=== PATIENT | female | born 1950 | race Caucasian/White ===

== ENCOUNTER → 2024-05-19 07:26 | Outpatient (REF) | payer MEDICARE, OTHER, SELFPAY | LOC: WDC 07:26 | PROVIDERS: ATTENDING PHYSICIAN Nurse Practitioner Adult Health; FAMILY PHYSICIAN Nurse Practitioner | DX: Z12.31 Encounter for screening mammogram for malignant neoplasm of breast (principal); M85.89 Other specified disorders of bone density and structure, multiple sites | CPT/HCPCS: 77063; 77067; 77080 ==

== ENCOUNTER → 2024-06-23 18:59 | Outpatient (REF) | payer MEDICARE, OTHER, SELFPAY | LOC: PAVMRI 18:59 | PROVIDERS: ATTENDING PHYSICIAN Student in an Organized Health Care Education/Training Program; FAMILY PHYSICIAN Nurse Practitioner | DX: M25.511 Pain in right shoulder (principal) | CPT/HCPCS: 73221 ==

== ENCOUNTER → 2024-07-28 13:10 | Outpatient (REF) | payer MEDICARE, OTHER, SELFPAY | LOC: HWRAD 13:10 | PROVIDERS: ATTENDING PHYSICIAN Internal Medicine Critical Care Medicine; FAMILY PHYSICIAN Nurse Practitioner | DX: R93.89 Abnormal findings on diagnostic imaging of other specified body structures (principal) | CPT/HCPCS: 71250 ==

== ENCOUNTER → 2024-09-15 07:00 | Outpatient (REF) | payer MEDICARE, OTHER, SELFPAY ==
[2024-09-15 07:38] LABS: % Basophils 0.5 % (0-2); % Eosinophils 15.9 % (0-6); % Immature Granulocytes 0.3 % (0-0.5); % Lymphocytes 19.8 % (20.5-51.1); % Monocytes 10.1 % (1.7-9.3); % Neutrophils 53.4 % (42.2-75.2); Absolute Eosinophils 0.9 10^3/uL (0-0.7); Absolute Lymphocytes 1.2 10^3/uL (1.2-3.4); Absolute Monocytes 0.6 10^3/uL (0.1-0.6); Absolute Neutrophils 3.1 10^3/uL (1.4-6.5); Hematocrit 39.5 % (37.0-47.0); Hemoglobin 13.2 g/dL (12.0-16.0); Mean Corp Hgb Conc. 33.4 g/dL (33.0-37.0); Mean Corpuscular Hgb 29.7 pg (27.0-31.0); Mean Platelet Volume 9.9 fL (7.4-10.4); Nucleated Red Blood Cells % 0 %; Platelet Count 186 10^3/uL (130-400); Red Blood Cell Count 4.44 10^6/uL (4.20-5.40); Red Cell Dist. Width 13.4 % (11.5-14.5); White Blood Cell Count 5.9 10^3/uL (4.8-10.8)
[2024-09-15 09:26] LABS: C-Reactive Protein < 5.00 mg/L (0.0-10.00)
[2024-09-15 10:06] LABS: Erythrocyte Sed Rate 8 mm/hour (0-20)
[2024-09-16 12:19] LABS: Rheumatoid Agglutinin Less Than 10 IU (<10 IU)
[2024-09-17 08:47] LABS: CCP Antibody IgG/IgA 3 Units (0-19)
[2024-09-17 08:52] LABS: Jo-1 Antibodies 2 AU/mL (0-40); SSA 52 (Ro)(ENA) Ab, IgG 1 AU/mL (0-40); SSA 60 (Ro)(ENA) Ab, IgG 0 AU/mL (0-40); SSB (La)(ENA) Ab, IgG 0 AU/mL (0-40); Scleroderma Antibody (Scl-70) 1 AU/mL (0-40)
[2024-09-18 02:30] LABS: ds-DNA Ab, IgG Reflex To Titer 5 IU (0-24)
== END ==
LOC: REG 07:00
PROVIDERS: ATTENDING PHYSICIAN Internal Medicine Critical Care Medicine; FAMILY PHYSICIAN Hospitalist
DX: R91.8 Other nonspecific abnormal finding of lung field (principal); J84.9 Interstitial pulmonary disease, unspecified
CPT/HCPCS: 36415; 85025; 85652; 86140; 86200; 86225; 86235; 86331; 86430; 86606

== ENCOUNTER 2025-04-19 06:21 | Day surgery (SDC) | payer MEDICARE, OTHER, SELFPAY | END 2025-04-19 10:07 | disposition home or self-care (01) | LOC: GI 06:21 | PROVIDERS: ATTENDING PHYSICIAN Internal Medicine Gastroenterology; FAMILY PHYSICIAN Hospitalist | DX: Z12.11 Encounter for screening for malignant neoplasm of colon (principal); K64.8 Other hemorrhoids; K64.4 Residual hemorrhoidal skin tags; K62.89 Other specified diseases of anus and rectum; D12.3 Benign neoplasm of transverse colon; D12.2 Benign neoplasm of ascending colon; K63.5 Polyp of colon; K62.1 Rectal polyp; Z86.0100 Personal history of colon polyps, unspecified | CPT/HCPCS: 45380; 88305 ==

== ENCOUNTER → 2025-05-20 11:02 | Outpatient (REF) | payer MEDICARE, OTHER, SELFPAY | LOC: WDC 11:02 | PROVIDERS: ATTENDING PHYSICIAN Hospitalist | DX: Z12.31 Encounter for screening mammogram for malignant neoplasm of breast (principal) | CPT/HCPCS: 77063; 77067 ==

== ENCOUNTER → 2025-05-26 08:48 | Outpatient (REF) | payer MEDICARE, OTHER, SELFPAY | LOC: WDC 08:48 | PROVIDERS: ATTENDING PHYSICIAN Hospitalist | DX: R92.8 Other abnormal and inconclusive findings on diagnostic imaging of breast (principal) | CPT/HCPCS: 76642 ==